=== PATIENT | female | born 1945 | race Caucasian/White ===

== ENCOUNTER → 2017-01-19 | Outpatient (CLI) | payer OTHER ==
[~2017-01-19] MED LIST: ADDERALL 10 MG10 MG PO; AMBIEN 5 MG TABL5 M1 PO; COZAAR 50 MG TA50 M2 PO; LASIX 40 MG TAB40 M2 PO; MELATONIN3 MG PO; MIRAPEX0.5 MG PO; NAPROSYN500 MG PO; NEXIUM40 MG PO; TRAZODONE 150150 M1 PO
== END ==
LOC: RAD 13:25
DX: Z12.31 Encounter for screening mammogram for malignant neoplasm of breast (principal)

== ENCOUNTER → 2018-01-18 | Outpatient (CLI) | payer OTHER | LOC: RAD 14:56 | DX: Z12.31 Encounter for screening mammogram for malignant neoplasm of breast (principal) ==

== ENCOUNTER → 2019-02-14 | Outpatient (CLI) | payer OTHER | LOC: RAD 13:44 | DX: Z12.31 Encounter for screening mammogram for malignant neoplasm of breast (principal) ==

== ENCOUNTER → 2019-02-20 | Outpatient (CLI) | payer OTHER | LOC: ULTRA 10:26 | DX: N63.14 Unspecified lump in the right breast, lower inner quadrant (principal) ==